=== PATIENT | male | born 1945 | race Caucasian/White ===

== ENCOUNTER → 2017-02-20 | Outpatient (CLI) | payer OTHER, MEDICARE ==
[~2017-02-20] MED LIST: ADVIN10/60 INH; ALBU1AER9 INH; ASPI81TA82 PO; AZEL0.15 NAE; BUDESUS NAE; CARV3.12 PO; CHOLCAP5 PO; DOXY100C46 PO; FAMO20TA9 PO; GLUC750C4 PO; LACT1CAP6 PO; LISI-729 PO; MULTTAB58 PO; NITR0.4S UT; OMEG340C PO; OMEP20TA PO; ONDA8TAB62 SL; SUCR1TAB29 PO
--- NOTE | 2017-02-20 11:59 | DIAGNOSTIC IMAGING REPORT ---
TESTICULAR ULTRASOUND HISTORY: Pain TESTICULAR PAIN COMPARISON: None. FINDINGS: Right testis: Maximum dimension 5.9 cm. Normal vascular flow. Several varicoceles or spermatoceles measuring up to 4 x 2 cm. Left testis: Maximum dimension 4.5 cm. Normal vascular flow. Left-sided varicocele. IMPRESSION: 1. Normal testes bilaterally. 2. 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 Electronically signed by: Dipseh Yap M.D. 02/20/2017 11:58 AM Dictated Date/Time: 02/20/2017 11:56 AM
== END | disposition home or self-care (01) ==
LOC: C.ULTRBC 10:58
PROVIDERS: ATTEND Urology
DX: N50.819 Testicular pain, unspecified (principal)